=== PATIENT | male | born 1930 | race Caucasian/White ===

== ENCOUNTER 2016-11-13 01:03 | Emergency (ER) | payer BC, MEDICARE ==
[2016-11-13 01:14] VITALS: TEMP 98.6; BMI 27.2
[2016-11-13] MEDS ORDERED: NS 1,000 ML IV ONE (01:21)
[2016-11-13] MEDS ORDERED: ONDANSETRON HCL 4 MG ODT TAB PO ONE (01:21)
[2016-11-13 01:32] LABS: AUTOMATED BASOPHIL 0.8 % (0-2); AUTOMATED EOSINOPHIL 1.7 % (0-5); AUTOMATED LYMPH 11.4 % (17-44); AUTOMATED MONOCYTE 11.5 % (3-10); AUTOMATED NEUTROPHIL 74.6 % (45-76); MPV 9.3 fL (7.4-10.4)
--- NOTE | 2016-11-13 01:32 | EDPRACDOC ---
- General Information Chief Complaint: Generalized Weakness Stated Complaint: WEAKNESS Time Seen by Provider: 11/13/16 01:12 Information Source: Patient, School Age Teacher Mode Of Arrival: Ambulance Home Medications: Home Medications Azithromycin [Zithromax] 250 mg PO DAILY #6 tablet 11/13/16 Ondansetron [Zofran Odt] 4 mg PO Q6H PRN #20 tab.rapdis 11/13/16 Allergies/Adverse Reactions: Allergies Allergy/AdvReac Type Severity Reaction Status Date / Time No Known Allergies Allergy Verified 11/13/16 01:10 - History of Present Illness Onset: 1.5 HOUR Exact Onset of Symptoms: Known Date Symptoms Started: 11/13/16 Time Symptoms Started: 00:00 HPI: PT PRESENTS DUE TO GENERALIZED WEAKNESS. STATES HE WENT TO GET OUT OF THE BED AND HE COULD NOT GET HIS LEGS TO MOVE THE WAY HE WANTED THEM TO. STATES HE GENTLY WENT TO THE FLOOR. HE WAS ABLE TO GET HIMSELF BACK UP TO THE BED AND THEN CALLED HIS SON. STATES HE DID BECOME NAUSEATED DURING THE EPISODE BUT FEELS BETTER UPON ARRIVAL TO THE ED. PT STATES HE HAD A SIMILAR EPISODE LAST WEEK WHERE HE WENT TO THE GROUND IN THE Y[place] DUE TO SIMILAR CIRCUMSTANCES. Symptoms Started: Reports: At Rest Symptoms Description: Improved Weakness: Bilateral: Leg Symptoms: Reports: Weak Symptom Severity: Reports: Unable to performs ADL's Relevant History of: Denies: O, Anemia, CVA, DM, Electrolyte disorder, GI Bleed , SC, TIA Associated signs and symptoms:: Reports: Nausea ED Past Medical History - History Reviewed Yes Nurses notes reviewed and agree except as marked - Patient Medical History Cardiac History: Reports: Hypertension Psychological History: Denies: Depression Systemic History: Denies: Cancer - Social Medical History Smoking Status: Never smoker EDM Review of Systems - Review of Systems ROS Negative Except as Marked: Yes All systems reviewed and were negative except as marked - Physical Exam Constitutional: Alert Oriented to: Time, Person, Place Last recorded Vital Signs: Last Vital Signs Temp 98.6 F 11/13/16 01:10 Pulse 86 11/13/16 01:10 Resp 20 11/13/16 01:10 BP 184/88 H 11/13/16 01:10 Pulse Ox 96 11/13/16 01:10 Oxygen Pulse Oxygen Saturation 96 O2 Device Room Air Oxygen Flow Rate Fraction of Inspired Oxygen ( FIO2) - HEENT Head: Normal ( normocephalic) Eye Exam: Normal (PERRL, EOMI, Sclera white) Oropharynx: Normal (Pharynx:Moist without exudate,Gums-no swelling) Tympanic Membrane: Normal Nose: No Symptoms Reported (septum midline) Neck: Normal (FROM, trachea at midline) - Respiratory/Cardiovascular Respiratory: Normal - CTA (BBS clear to auscultation without adventitious sounds ) Cardiovascular: Normal (RRR without murmur, gallop or rub) - GI Auscultation: Normal (NABS) Palpation: Normal (Soft,No rebound or guarding, non distended) Tenderness: Non tender [place]'s Sign: Negative Rectal Exam: Deferred - Musculoskeletal Back: Normal (Non-Tender) Extremities: Normal (Normal tone, Pulses 2+ No cyanosis or edema, FROM) - Integumentary Skin: Normal, Warm, Dry Lymphatics: Normal (no adenopathy) - Neurologic Memory Impaired: Normal Motor Function: Normal (Normal tone, Pulses 2+ No cyanosis or edema, FROM) Cranial Nerve: Normal (CN II-X11 intact sensation, strength 5/5) Cerebellar: Normal Mood Description: Normal Perception: Normal NIH Stroke Scale Initial Evaluation Level of Consciousness: Alert LOC- Question: Answers Both Correctly LOC Commands: Both Task Correctly Best Gaze: Normal Visual: No Visual Loss Facial Palsy: Normal Movement Motor Arm LEFT: No Drift Motor Arm RIGHT: No Drift Motor Leg LEFT: No Drift Motor Leg RIGHT: No Drift Limb Ataxia: Absent Sensory: Normal Best Language: No Aphasia Dysarthria: Normal Extinction and Inattention: No Abnormality (Neglect) Score: 0out of42 - Neurologic Orientation: Time, Person, Place Speech: Fluent, Clear Coginitive: Normal, Follows Commands Affect: Normal, Calm Thought: Coherent Perception: Normal - Differential Diagnosis CVA, Dehydration, Electrolyte disorder - Re-evaluation Re-evaluation 1 Re-evaluation Time: 02:27 (VSS. NO ACUTE DISTRESS NOTED. ) - Results 11/13/16 01:15 11/13/16 01:15 - EKG EKG #1 EKG Time: 01:55 -: Yes EKG interpreted by me Rate: bpm: 84 Butler: Normal Rhythm: NSR Block: 1, AVB Hypertrophy: None ST: Normal Decision Time to Discharge: 02:28 - Departure Disposition: Home Condition: Stable Final Diagnosis: Sinusitis Qualifiers: Sinusitis location: unspecified location Chronicity: acute Recurrence: non- recurrent Qualified Code(s): J01.90 - Acute sinusitis, unspecified Instructions: Sinusitis (ED) Education/Counseling Given To: Patient Education/Counseling Given Regarding: Diagnosis, Treatment, Prognosis, Follow Up Referrals: Gabe Mariano MD [Staff Physician] - One Week Prescriptions: New Azithromycin [Zithromax] 250 mg PO DAILY #6 tablet Ondansetron [Zofran Odt] 4 mg PO Q6H PRN #20 tab.rapdis PRN Reason: Nausea/Vomiting Additional Instructions: INCREASE FLUID INTAKE. FOLLOW UP WITH PRIMARY CARE PROVIDER NEXT WEEK. TAKE ALL ANTIBIOTICS PRESCRIBED. RETURN TO THE ED FOR WORSENING SYMPTOMS OR CONCERNS.
--- NOTE | 2016-11-13 01:43 | DIRPT ---
CLINICAL DATA: Weakness and fall EXAM: CHEST 2 VIEW COMPARISON: 12/28/2011 FINDINGS: Normal heart size and stable mediastinal contours. No acute infiltrate or edema. No effusion or pneumothorax. No acute osseous findings. IMPRESSION: No active cardiopulmonary disease. Electronically Signed By: Clive Bryant M.D. On: 11/13/2016 01:40
[2016-11-13 01:46] LABS: BLOOD UREA NITROGEN 17 MG/DL (9-20); CALCIUM 9.5 MG/DL (8.4-10.2); CALCULATED OSMOLALITY 267 MOs/Kg (270-290); CHLORIDE 101 mEq/L (98-107); GLUCOSE 109 mg/dL (70-99); SODIUM LEVEL 137 mEq/L (137-146); TOTAL PROTEIN 7.2 G/DL (6.3-8.2)
[2016-11-13 01:52] LABS: CPK TOTAL WITH POSSIBLE MB 105 IU/L (55-170)
--- NOTE | 2016-11-13 02:02 | DIRPT ---
CLINICAL DATA: Weakness and unsteady gait, similar episode last week. EXAM: CT HEAD WITHOUT CONTRAST TECHNIQUE: Contiguous axial images were obtained from the base of the skull through the vertex without intravenous contrast. COMPARISON: None. FINDINGS: The ventricles and sulci are normal for age. No intraparenchymal hemorrhage, mass effect nor midline shift. Patchy to confluent supratentorial white matter hypodensities. No acute large vascular territory infarcts. No abnormal extra-axial fluid collections. Basal cisterns are patent. Moderate calcific atherosclerosis of the carotid siphons. No skull fracture. The included ocular globes and orbital contents are non-suspicious. Small LEFT maxillary sinus air-fluid level, small bilateral sphenoid sinus air-fluid levels. Mastoid air cells are well aerated. IMPRESSION: No acute intracranial process. Acute mild paranasal sinusitis. Involutional changes. Moderate to severe chronic small vessel ischemic disease. Electronically Signed By: Sis Newsome M.D. On: 11/13/2016 01:59
[2016-11-13 02:16] LABS: LEUKOCYTES/URINE NEG (NEGATIVE); NITRITE/URINE NEG (NEGATIVE); RBC/URINE 0-2 (0-2); URINE OCCULT BLOOD NEG (NEG/TRACE); WBC/URINE 0-2 (0-2)
[2016-11-13] MEDS ORDERED: AZITHROMYCIN 250 MG TAB PO ONE (02:29)
[2016-11-13 02:43] VITALS: BP 159/74; PULSE 79
== END 2016-11-13 02:42 | disposition home or self-care (01) ==
LOC: ED 01:03
DX: J01.90 Acute sinusitis, unspecified (principal); R26.2 Difficulty in walking, not elsewhere classified
CPT/HCPCS: 36415; 70450; 71020; 80053; 81001; 82550; 83880; 84484; 85025; 85610; 85730; 93005; 96360; 99284; A9270; J3490